=== PATIENT | male | born 1945 | race Caucasian/White ===

== ENCOUNTER 2023-08-22 12:52 | Outpatient (OUT) | payer MEDICARE, SELFPAY ==
[2023-08-22 14:42] LABS: Prostate Specific Antigen Dx <0.13 ng/mL (<=4.00)
== END 2023-08-22 12:53 | disposition home or self-care (01) ==
LOC: LAB 12:57
PROVIDERS: PCP Family Medicine
DX: C61 Malignant neoplasm of prostate (principal)
CPT/HCPCS: 36415; 84153

== ENCOUNTER 2024-09-03 14:38 | Outpatient (OUT) | payer MEDICARE, SELFPAY ==
--- NOTE | 2024-09-03 14:47 | XR_ITS ---
The [address] [address] Patient Name: ALYSA DICKINSON MRN: [id number] date: 1945 Sex: M Assigned Patient Location: [facility] Current Patient Location: Accession/Order Number: [id number] Exam Date: 09/03/2024 14:50 Report Date: 09/05/2024 06:43 At the request of: ANNAMARIA NGUYEN Procedure: XR chest 2V EXAMINATION: XR chest 2V HISTORY: Permanent Atrial Fibrillation, Chest Pain COMPARISON: XR chest 10/08/2019, 04/14/2017 FINDINGS: LUNGS: Slight increasing chronic right basilar opacity. VASCULATURE: No increased pulmonary vasculature. PLEURA: No pneumothorax, effusion, or pleural thickening. CARDIAC: No cardiomegaly or cardiac silhouette abnormality. MEDIASTINUM: No visible mass or adenopathy. BONES: No fracture or visible bone lesion. OTHER: Interval placement of cardiac pacer since prior study. XR/XR chest 2V IMPRESSION: 1. Mild right basilar infiltrates overlying chronic changes. Electronically authenticated by: KEEGAN ADHIKARI Date: 09/05/2024 06:43
== END 2024-09-03 14:39 | disposition home or self-care (01) ==
LOC: RAD 14:39
PROVIDERS: PCP Family Medicine; Visit Provider Family Medicine
DX: I48.21 Permanent atrial fibrillation (principal); R07.9 Chest pain, unspecified
CPT/HCPCS: 71046